=== PATIENT | male | born 2000 | race Caucasian/White ===

== ENCOUNTER 2025-08-26 11:34 | Emergency (ER) | payer OTHER, BC ==
[~2025-08-26] VITALS: Wt 108.9 kg
[2025-08-26] MEDS ORDERED: DERMABOND 1 EA APPL T ONE (13:01)
== END 2025-08-26 13:10 | disposition home or self-care (01) ==
LOC: ED 11:34
DX: S01.411A Laceration without foreign body of right cheek and temporomandibular area, initial encounter (principal); W20.8XXA Other cause of strike by thrown, projected or falling object, initial encounter; Y93.89 Activity, other specified; Y92.89 Other specified places as the place of occurrence of the external cause; Y99.0 Civilian activity done for income or pay